=== PATIENT | female | born 1995 | race Caucasian/White ===

== ENCOUNTER → 2019-12-22 14:42 | Outpatient (CLI) | payer OTHER, SELFPAY ==
--- NOTE | 2019-12-22 14:44 | DI.US.S_ITS ---
PROCEDURE: US PELVIC COMPLETE INDICATIONS: VAG BLEED TECHNIQUE: Real-time scanning was performed of the pelvic organs, with image documentation. Additional endovaginal scanning was necessary due to incomplete visualization of the adnexal and endometrial structures by transabdominal scanning. COMPARISON: None. FINDINGS: Transabdominal scanning: Limited scanning through the kidneys shows no hydronephrosis. No pathologic free abdominal or pelvic fluid. Endovaginal scanning: Uterus: Uterus is normal in size at 7.2 x 3.2 x 4.1 cm. The endometrium measures 4.0 mm in combined thickness. Ovaries: Ovaries normal bilaterally measuring 3.8 x 2.5 x 2.3 cm on the right and 3.4 x 1.8 x 2.2 cm on the left. No adnexal masses. IMPRESSION: No source for vaginal bleeding identified. Dictated by: Daniel Malone [facility] Interpreted: Nan Hanks MD on 12/22/2019 at 16:21 Approved by: Nan Hanks MD, PhD on 12/22/2019 at 17:22
== END ==
PROVIDERS: PCP Obstetrics & Gynecology; Referring Provider Obstetrics & Gynecology; Visit Provider Obstetrics & Gynecology
DX: N93.9 Abnormal uterine and vaginal bleeding, unspecified (principal); R10.2 Pelvic and perineal pain
CPT/HCPCS: 76830; 76856

== ENCOUNTER → 2020-08-02 10:07 | Outpatient (CLI) | payer OTHER, SELFPAY ==
[2020-08-02 10:20] LABS: Add Manual Diff / Slide Review NO; Basophils Absolute Auto 100 /uL (0-100); Basophils Percent Auto 1.3 % (0-2); Eosinophils Absolute Auto 200 /uL (0-450); Hematocrit 40.3 % (36-46); Hemoglobin 13.8 g/dL (12.0-16.0); Lymphocytes Absolute Auto 2000 /uL (1100-4500); Lymphocytes Percent Auto 34.3 % (25-40); Mean Corpuscular HGB Conc 34.4 % (30-36); Mean Corpuscular Hemoglobin 30.5 PG (26-34); Mean Corpuscular Volume 88.6 fL (80-100); Monocytes Absolute Auto 500 /uL (0-900); Neutrophils Absolute Auto 3100 /uL (1500-7000); Neutrophils Percent Auto 53.4 % (50-75); Platelet Count 255 X10^3/uL (150-400); Red Blood Cell Count 4.55 X10^6/uL (4.0-5.2); Red Cell Distribution Width 12.9 % (11.6-14.8); White Blood Cell Count 5.8 X10^3/uL (4.5-11.0)
[2020-08-02 10:33] LABS: Alanine Aminotransferase 19 IU/L (<35); Albumin 4.5 g/dL (3.5-5.0); Albumin Globulin Ratio 1.7 (1.0-2.8); Alkaline Phosphatase 75 U/L (38-126); Aspartate Aminotransferase 23 IU/L (14-36); BUN Creatinine Ratio 22.4 (6-22); Bilirubin Total 0.3 mg/dL (0.2-1.3); Blood Urea Nitrogen 15 mg/dL (7-17); Calcium 9.6 mg/dL (8.4-10.2); Carbon Dioxide 27 mmol/L (22-32); Chloride 104 mmol/L (98-107); Estimated Glomerular Filt Rate > 60.0 mL/min (>60); Globulin 2.6 g/dL (1.7-4.1); Glucose 90 mg/dL (70-100); HEMOLYSIS < 15 (0-50); Sodium 140 mmol/L (137-145); Total Protein 7.1 g/dL (6.3-8.2)
== END ==
PROVIDERS: PCP Family Medicine; Referring Provider Physician Assistant; Visit Provider Physician Assistant
DX: R19.5 Other fecal abnormalities (principal)
CPT/HCPCS: 36415; 80053; 85025

== ENCOUNTER → 2020-08-07 14:06 | Outpatient (CLI) | payer OTHER, SELFPAY | PROVIDERS: PCP Family Medicine; Referring Provider Physician Assistant; Visit Provider Physician Assistant | DX: R19.5 Other fecal abnormalities (principal) | CPT/HCPCS: 83013 ==

== ENCOUNTER → 2020-08-29 12:03 | Outpatient (CLI) | payer OTHER, SELFPAY ==
[2020-08-29 13:59] LABS: Occult Blood 1 Negative (Negative)
== END ==
PROVIDERS: PCP Registered Nurse Diabetes Educator; Referring Provider Physician Assistant; Visit Provider Physician Assistant
DX: R19.5 Other fecal abnormalities (principal)
CPT/HCPCS: 82270; 87045; 87899

== ENCOUNTER → 2020-09-06 17:05 | Outpatient (CLI) | payer OTHER, SELFPAY ==
[2020-09-06 18:12] LABS: Erythrocyte Sedimentation Rate 3 MM/HR (0-20)
[2020-09-06 18:20] LABS: HEMOLYSIS < 15 (0-50); Iron 52 ug/dL (37-170)
[2020-09-06 18:24] LABS: C-Reactive Protein Quant < 0.5 mg/dL (<1.0)
[2020-09-06 18:30] LABS: Vitamin D 25 Hydroxy (D3) 48.5 ng/mL (30.0-100.0)
[2020-09-06 18:31] LABS: Percent Iron Saturation 15 % (15-50); Total Iron Binding Capacity 342 ug/dL (265-497); Transferrin 272 mg/dL (206-381)
[2020-09-06 18:51] LABS: TSH w/ Reflex to FT4 1.06 uIU/mL (0.47-4.68)
[2020-09-06 18:56] LABS: Ferritin 33 ng/mL (6-137)
[2020-09-09 15:02] LABS: ANA Screen, IFA Negative (.)
== END ==
PROVIDERS: PCP Registered Nurse Diabetes Educator; Referring Provider Registered Nurse Diabetes Educator; Visit Provider Registered Nurse Diabetes Educator
DX: L65.9 Nonscarring hair loss, unspecified (principal); R53.83 Other fatigue
CPT/HCPCS: 36415; 82306; 82728; 83540; 83550; 84443; 85651; 86038; 86140

== ENCOUNTER → 2021-06-20 16:41 | Outpatient (CLI) | payer OTHER, SELFPAY ==
[2021-06-23 05:11] LABS: Alder IgE <0.10 kU/L (Class 0); Alternaria alternata IgE <0.10 kU/L (Class 0); Aspergillus fumigatus IgE <0.10 kU/L (Class 0); Box Elder IgE <0.10 kU/L (Class 0); Cladosporium herbarum IgE <0.10 kU/L (Class 0); Cockroach IgE 0.13 kU/L (Class 0/I); Cottonwood IgE <0.10 kU/L (Class 0); D farinae IgE <0.10 kU/L (Class 0); D pteronyssinus IgE <0.10 kU/L (Class 0); Dog Dander IgE <0.10 kU/L (Class 0); Elm Tree IgE <0.10 kU/L (Class 0); Immunoglobulin E 16 IU/mL (6-495); Mountain Cedar IgE <0.10 kU/L (Class 0); Mouse Urine Proteins IgE <0.10 kU/L (Class 0); Nettle IgE <0.10 kU/L (Class 0); Oak Tree IgE <0.10 kU/L (Class 0); Penicillium chrysogen IgE <0.10 kU/L (Class 0); Pigweed, Common IgE <0.10 kU/L (Class 0); Ragweed, Short <0.10 kU/L (Class 0); Sheep Sorrel IgE <0.10 kU/L (Class 0); Silver Birch IgE <0.10 kU/L (Class 0); Timothy Grass IgE <0.10 kU/L (Class 0); Walnut Allery IgE < 0.10 kU/L (Class 0); White ash IgE <0.10 kU/L (Class 0)
[2021-06-23 08:46] LABS: Almond IgE <0.10 kU/L (Class 0); Cashew Nut IgE <0.10 kU/L (Class 0); Codfish Allergy IgE < 0.10 kU/L (Class 0); Egg White IgE <0.10 kU/L (Class 0); Hazelnut IgE <0.10 kU/L (Class 0); Milk IgE <0.10 kU/L (Class 0); Peanut IgE <0.10 kU/L (Class 0); Salmon Allergy IgE < 0.10 kU/L (Class 0); Scallop Allergy IgE 0.21 kU/L (Class 0/I); Sesame seed Allergy IgE < 0.10 kU/L (Class 0); Shrimp IgE 0.22 kU/L (Class 0/I); Soybean IgE <0.10 kU/L (Class 0); Tuna Allergy IgE < 0.10 kU/L (Class 0); Walnut IgE <0.10 kU/L (Class 0); Wheat Allergy IgE < 0.10 kU/L (Class 0)
[2021-07-01 11:34] LABS: Cat Dander IgE <0.10
== END ==
PROVIDERS: PCP Registered Nurse Diabetes Educator; Referring Provider Registered Nurse Diabetes Educator; Visit Provider Registered Nurse Diabetes Educator
DX: L50.9 Urticaria, unspecified (principal); R21 Rash and other nonspecific skin eruption
CPT/HCPCS: 36415; 82785; 86003; 87169

== ENCOUNTER → 2021-06-20 17:04 | Outpatient (ROUT) | payer OTHER, SELFPAY | PROVIDERS: PCP Registered Nurse Diabetes Educator; Visit Provider Registered Nurse Diabetes Educator | DX: R21 Rash and other nonspecific skin eruption (principal) | CPT/HCPCS: 87169 ==

== ENCOUNTER → 2022-02-19 16:23 | Outpatient (CLI) | payer OTHER, SELFPAY ==
[2022-02-19 16:48] LABS: Hematocrit 40.1 % (36-46); Mean Corpuscular HGB Conc 34.8 % (30-36); Mean Corpuscular Hemoglobin 30.3 PG (26-34); Platelet Count 257 X10^3/uL (150-400); Red Blood Cell Count 4.61 X10^6/uL (4.0-5.2); Red Cell Distribution Width 12.9 % (11.6-14.8)
[2022-02-19 17:17] LABS: Vitamin D 25 Hydroxy (D3) 46.8 ng/mL (30.0-100.0)
[2022-02-19 17:18] LABS: Alanine Aminotransferase 25 IU/L (<35); Albumin 4.5 g/dL (3.5-5.0); Albumin Globulin Ratio 1.5 (1.0-2.8); Alkaline Phosphatase 61 U/L (38-126); Aspartate Aminotransferase 26 IU/L (14-36); BUN Creatinine Ratio 26.8 (6-22); Bilirubin Total 0.2 mg/dL (0.2-1.3); Blood Urea Nitrogen 15 mg/dL (7-17); Carbon Dioxide 26 mmol/L (22-32); Chloride 103 mmol/L (98-107); Estimated Glomerular Filt Rate > 60 mL/min (>60); Glucose 101 mg/dL (70-100); HEMOLYSIS < 15 (0-50); Magnesium 2.1 mg/dL (1.6-2.3); Sodium 141 mmol/L (137-145); Total Protein 7.5 g/dL (6.3-8.2)
[2022-02-19 17:31] LABS: TSH w/ Reflex to FT4 1.89 uIU/mL (0.47-4.68)
== END ==
PROVIDERS: PCP Registered Nurse Diabetes Educator; Referring Provider Registered Nurse Diabetes Educator; Visit Provider Registered Nurse Diabetes Educator
DX: R53.83 Other fatigue (principal); R63.5 Abnormal weight gain
CPT/HCPCS: 36415; 80053; 82306; 83735; 84443; 85027

== ENCOUNTER → 2022-04-25 13:29 | Outpatient (CLI) | payer OTHER, SELFPAY ==
[2022-04-25 15:38] LABS: Free T4, Direct Thyroxine 1.17 ng/dL (0.78-2.19)
== END ==
PROVIDERS: PCP Registered Nurse Diabetes Educator; Referring Provider Registered Nurse Diabetes Educator; Visit Provider Registered Nurse Diabetes Educator
DX: L65.9 Nonscarring hair loss, unspecified (principal); R53.83 Other fatigue
CPT/HCPCS: 36415; 84439

== ENCOUNTER → 2024-11-22 10:18 | Outpatient (CLI) | payer OTHER, SELFPAY ==
[2024-11-22 10:44] LABS: Hematocrit 43.5 % (36-46); Hemoglobin 14.7 g/dL (12.0-16.0); Mean Corpuscular HGB Conc 33.9 % (30-36); Mean Corpuscular Hemoglobin 29.8 PG (26-34); Mean Corpuscular Volume 88.0 fL (80-100); Platelet Count 241 X10^3/uL (150-400)
[2024-11-22 11:36] LABS: Alanine Aminotransferase 31 IU/L (<35); Albumin 4.7 g/dL (3.5-5.0); Albumin Globulin Ratio 1.9 (1.0-2.8); Alkaline Phosphatase 51 U/L (38-126); Blood Urea Nitrogen 19 mg/dL (7-17); Calcium 9.3 mg/dL (8.4-10.2); Carbon Dioxide 24 mmol/L (22-32); Chloride 105 mmol/L (98-107); Cholesterol 167 mg/dL (140-199); Estimated Glomerular Filt Rate > 60 mL/min (>60); Globulin 2.5 g/dL (1.7-4.1); Glucose 93 mg/dL (70-99); HDL Cholesterol 49 mg/dL (40-60); HEMOLYSIS < 15 (0-50); Potassium 4.5 mmol/L (3.4-5.1); Sodium 138 mmol/L (137-145); Total Protein 7.2 g/dL (6.3-8.2); Triglycerides 54 mg/dL (35-150)
[2024-11-22 11:37] LABS: HEMOLYSIS < 15 (0-50); Iron 141 ug/dL (37-170)
[2024-11-22 11:47] LABS: Percent Iron Saturation 43 % (15-50); Total Iron Binding Capacity 326 ug/dL (265-497)
[2024-11-22 11:50] LABS: Vitamin D 25 Hydroxy (D3) 58.3 ng/mL (30.0-100.0)
[2024-11-22 11:51] LABS: Follicle Stimulating Hormone 5.39 mIU/mL
[2024-11-22 11:54] LABS: Free T4, Direct Thyroxine 0.98 ng/dL (0.78-2.19)
[2024-11-22 12:06] LABS: Estradiol, Total 38.9 pg/mL
[2024-11-22 12:08] LABS: Thyroid Stimulating Hormone 0.823 uIU/mL (0.47-4.68)
[2024-11-22 12:10] LABS: Ferritin 30 ng/mL (6-137)
[2024-11-22 14:14] LABS: Transferrin 255 mg/dL (206-381)
== END ==
PROVIDERS: PCP Registered Nurse Diabetes Educator; Referring Provider Registered Nurse Diabetes Educator; Visit Provider Registered Nurse Diabetes Educator
DX: Z00.00 Encounter for general adult medical examination without abnormal findings (principal); R53.83 Other fatigue; L68.0 Hirsutism; N91.5 Oligomenorrhea, unspecified
CPT/HCPCS: 36415; 80053; 80061; 82306; 82627; 82670; 82728; 83001; 83002; 83498; 83540; 83550; 84146; 84403; 84439; 84443; 85027